=== PATIENT | female | born 1940 | race Caucasian/White ===

== ENCOUNTER 2018-12-13 09:59 | Inpatient (IN) ==
[2018-12-13] MEDS ORDERED: Mag Hydrox/Al Hydrox/Simeth 30 ML UDC PO PRN (16:50)
[2018-12-13] MEDS ORDERED: Ondansetron ODT 4 MG TAB.RAPDIS SL PRN (16:51)
[2018-12-13] MEDS ORDERED: Sennosides/Docusate Sodium TABLET PO PRN (17:34)
[2018-12-13] MEDS ORDERED: ZEAXANTHIN PO SCH (17:45)
[2018-12-13] MEDS ORDERED: LUTEIN PO SCH (17:45)
[2018-12-13] MEDS ORDERED: Warfarin perPT PO PRN (18:00)
[2018-12-13] MEDS: Acetaminophen 325 MG TABLET PO PRN (22:45)
[2018-12-14 05:54] LABS: Basophils % 0.3 %; Eosinophils # 0.1 K/mcL (0.0-0.6); Eosinophils % 3.7 %; Hemoglobin 7.8 g/dL (11.5-15.4); Immature Granulocytes % 0.3 % (0-4); Lymphocytes # 0.9 K/mcL (0.6-4.6); Lymphocytes % 26.2 %; Mean Corpuscular HGB Conc 32.5 g/dL (31.6-35.5); Mean Corpuscular Hemoglobin 31.2 pg (28.0-33.3); Mean Platelet Volume 9.4 fL (9.4-12.4); Monocytes # 0.3 K/mcL (0.0-1.3); Monocytes % 7.6 %; Neutrophils # 2.2 K/mcL (1.6-8.9); Red Cell Distribution Width 19.7 % (11.5-14.5); Segmented Neutrophils % 61.9 %; White Blood Count 3.6 K/mcL (4.3-11.1)
[2018-12-14 06:03] LABS: INR 3.2; Prothrombin Time 36.6 Seconds (9.4-12.1)
[2018-12-14 06:07] LABS: Platelet Count 82 K/mcL (140-400)
[2018-12-14 06:08] LABS: Anisocytosis 1+ (Not Present); Macrocytosis Present (Not Present); Microcytosis Present (Not Present); Platelet Estimate Marked Decrease (Normal); Poikilocytosis 1+ (Not Present)
[2018-12-14 06:09] LABS: Schistocytes 1+ (Not Present)
[2018-12-14 06:15] LABS: Alanine Aminotransferase 19 Units/L (7-52); Albumin 3.3 g/dL (3.5-5.7); Albumin/Globulin Ratio 1.4 (1.1-2.2); Alkaline Phosphatase 83 Units/L (34-104); Aspartate Amino Transferase 22 Units/L (13-39); BUN/Creatinine Ratio 17 (6-26); Bilirubin,Total 1.4 mg/dL (0.3-1.0); Blood Urea Nitrogen 12 mg/dL (8-23); Calcium 8.7 mg/dL (8.6-10.3); Carbon Dioxide 29 mEq/L (23-29); Chloride 106 mEq/L (98-107); Globulin 2.4 g/dL (2.4-3.5); Glucose 108 mg/dL (70-105); Magnesium 1.9 mg/dL (1.6-2.6); Osmolality,Calculated 288 (280-300); Sodium 139 mEq/L (136-145); Total Protein 5.7 g/dL (6.4-8.9); eGFR For African Americans > 60 (> 60); eGFR For Non-African Americans > 60 (> 60)
[2018-12-14] MEDS: Acetaminophen 325 MG TABLET PO PRN ×2 (06:35→20:37)
[2018-12-14] MEDS: Cholecalciferol (D-3) 1,000 UNIT (25MCG) TABLET PO SCH (10:04)
[2018-12-14] MEDS: Multivit/Ca/Min/Fe/FA 1 TAB TABLET PO SCH (10:04)
[2018-12-14] MEDS: Furosemide 20 MG TABLET PO SCH (10:04)
[2018-12-14] MEDS: OCUVITE LUTEIN PO SCH (10:05)
[2018-12-14] MEDS: Melatonin 3 MG TABLET PO PRN (20:38)
[2018-12-15] MEDS: Acetaminophen 325 MG TABLET PO PRN ×5 (02:33→21:33)
[2018-12-15 05:24] LABS: INR 2.3; Prothrombin Time 26.4 Seconds (9.4-12.1)
[2018-12-15] MEDS: Furosemide 20 MG TABLET PO SCH (08:16)
[2018-12-15] MEDS: Multivit/Ca/Min/Fe/FA 1 TAB TABLET PO SCH (08:16)
[2018-12-15] MEDS: Cholecalciferol (D-3) 1,000 UNIT (25MCG) TABLET PO SCH (08:16)
[2018-12-15] MEDS: OCUVITE LUTEIN PO SCH (08:16)
[2018-12-15] MEDS ORDERED: *HR* Warfarin 1 MG TABLET PO ONE (18:00)
[2018-12-15] MEDS: Melatonin 3 MG TABLET PO PRN (21:34)
[2018-12-16 05:55] LABS: Basophils % 0.4 %; Eosinophils # 0.1 K/mcL (0.0-0.6); Eosinophils % 3.6 %; Hematocrit 23.2 % (35.3-44.9); Hemoglobin 7.4 g/dL (11.5-15.4); Immature Granulocytes % 0.4 % (0-4); Lymphocytes # 0.6 K/mcL (0.6-4.6); Mean Corpuscular HGB Conc 31.9 g/dL (31.6-35.5); Mean Corpuscular Volume 97.1 fL (83.0-100.0); Mean Platelet Volume 12.3 fL (9.4-12.4); Monocytes # 0.2 K/mcL (0.0-1.3); Monocytes % 7.3 %; Neutrophils # 1.9 K/mcL (1.6-8.9); Red Blood Count 2.39 M/mcL (3.82-4.97); Red Cell Distribution Width 19.8 % (11.5-14.5); Segmented Neutrophils % 68.3 %; White Blood Count 2.8 K/mcL (4.3-11.1)
[2018-12-16 05:56] LABS: Platelet Count 97 K/mcL (140-400)
[2018-12-16 05:58] LABS: INR 1.5; Prothrombin Time 17.3 Seconds (9.4-12.1)
[2018-12-16 06:09] LABS: Alanine Aminotransferase 15 Units/L (7-52); Albumin 3.4 g/dL (3.5-5.7); Albumin/Globulin Ratio 1.5 (1.1-2.2); Alkaline Phosphatase 77 Units/L (34-104); Aspartate Amino Transferase 22 Units/L (13-39); BUN/Creatinine Ratio 23 (6-26); Bilirubin,Total 1.6 mg/dL (0.3-1.0); Blood Urea Nitrogen 15 mg/dL (8-23); Calcium 8.8 mg/dL (8.6-10.3); Carbon Dioxide 29 mEq/L (23-29); Chloride 104 mEq/L (98-107); Globulin 2.2 g/dL (2.4-3.5); Glucose 121 mg/dL (70-105); Osmolality,Calculated 286 (280-300); Potassium 3.7 mEq/L (3.5-5.1); Sodium 137 mEq/L (136-145); Total Protein 5.6 g/dL (6.4-8.9); eGFR For African Americans > 60 (> 60); eGFR For Non-African Americans > 60 (> 60)
[2018-12-16] MEDS: Acetaminophen 325 MG TABLET PO PRN ×2 (06:33→19:52)
[2018-12-16] MEDS: Furosemide 20 MG TABLET PO SCH (09:23)
[2018-12-16] MEDS: Cholecalciferol (D-3) 1,000 UNIT (25MCG) TABLET PO SCH (09:24)
[2018-12-16] MEDS: Multivit/Ca/Min/Fe/FA 1 TAB TABLET PO SCH (09:24)
[2018-12-16] MEDS: OCUVITE LUTEIN PO SCH (09:24)
[2018-12-16] MEDS ORDERED: *HR* Warfarin 1 MG TABLET PO ONE (18:00)
[2018-12-16] MEDS ORDERED: *HR* Warfarin 2 MG TABLET PO ONE (18:00)
[2018-12-17 05:15] LABS: INR 1.3; Prothrombin Time 14.5 Seconds (9.4-12.1)
[2018-12-17] MEDS: Multivit/Ca/Min/Fe/FA 1 TAB TABLET PO SCH (08:32)
[2018-12-17] MEDS: Cholecalciferol (D-3) 1,000 UNIT (25MCG) TABLET PO SCH (08:32)
[2018-12-17] MEDS: Furosemide 20 MG TABLET PO SCH (08:32)
[2018-12-17] MEDS: OCUVITE LUTEIN PO SCH (08:33)
[2018-12-17] MEDS ORDERED: *HR* Warfarin 1 MG TABLET PO ONE (18:00)
[2018-12-18] MEDS: Acetaminophen 325 MG TABLET PO PRN ×2 (05:44→23:11)
[2018-12-18 06:07] LABS: Eosinophils # 0.1 K/mcL (0.0-0.6); Eosinophils % 4.3 %; Hematocrit 22.3 % (35.3-44.9); Hemoglobin 7.1 g/dL (11.5-15.4); Immature Granulocytes % 0.4 % (0-4); Lymphocytes # 0.7 K/mcL (0.6-4.6); Lymphocytes % 27.9 %; Mean Corpuscular HGB Conc 31.8 g/dL (31.6-35.5); Mean Corpuscular Volume 97.4 fL (83.0-100.0); Mean Platelet Volume 10.2 fL (9.4-12.4); Monocytes # 0.3 K/mcL (0.0-1.3); Monocytes % 10.9 %; Neutrophils # 1.5 K/mcL (1.6-8.9); Red Blood Count 2.29 M/mcL (3.82-4.97); Red Cell Distribution Width 19.8 % (11.5-14.5); Segmented Neutrophils % 56.5 %; White Blood Count 2.6 K/mcL (4.3-11.1)
[2018-12-18 06:09] LABS: Platelet Count 86 K/mcL (140-400)
[2018-12-18 06:51] LABS: INR 1.2; Prothrombin Time 13.5 Seconds (9.4-12.1)
[2018-12-18] MEDS: OCUVITE LUTEIN PO SCH (09:08)
[2018-12-18] MEDS: Cholecalciferol (D-3) 1,000 UNIT (25MCG) TABLET PO SCH (09:12)
[2018-12-18] MEDS: Multivit/Ca/Min/Fe/FA 1 TAB TABLET PO SCH (09:12)
[2018-12-18] MEDS: Furosemide 20 MG TABLET PO SCH (09:12)
[2018-12-18] MEDS ORDERED: *HR* Warfarin 2.5 MG TABLET PO ONE (18:00)
[2018-12-18] MEDS: Melatonin 3 MG TABLET PO PRN (23:12)
[2018-12-19 05:38] LABS: INR 1.2; Prothrombin Time 13.5 Seconds (9.4-12.1)
[2018-12-19] MEDS: Multivit/Ca/Min/Fe/FA 1 TAB TABLET PO SCH (10:08)
[2018-12-19] MEDS: Furosemide 20 MG TABLET PO SCH (10:08)
[2018-12-19] MEDS: Cholecalciferol (D-3) 1,000 UNIT (25MCG) TABLET PO SCH (10:08)
[2018-12-19] MEDS: OCUVITE LUTEIN PO SCH (10:09)
[2018-12-19] MEDS ORDERED: *HR* Warfarin 2.5 MG TABLET PO ONE (18:00)
[2018-12-19] MEDS: Acetaminophen 325 MG TABLET PO PRN (21:13)
[2018-12-20 05:29] LABS: INR 1.1
[2018-12-20] MEDS: Multivit/Ca/Min/Fe/FA 1 TAB TABLET PO SCH (07:48)
[2018-12-20] MEDS: Furosemide 20 MG TABLET PO SCH (07:48)
[2018-12-20] MEDS: Cholecalciferol (D-3) 1,000 UNIT (25MCG) TABLET PO SCH (07:48)
[2018-12-20] MEDS: OCUVITE LUTEIN PO SCH (07:49)
[2018-12-20] MEDS: Acetaminophen 325 MG TABLET PO PRN ×2 (08:01→20:35)
[2018-12-20] MEDS ORDERED: *HR* Warfarin 10 MG TABLET PO ONE (12:00)
[2018-12-20 14:45] LABS: Bilirubin,Urine Negative (Negative); Blood,Urine Negative (Negative); Clarity,Urine Clear (Clear); Color,Urine Yellow (Yellow); Glucose,Urine (UA) Normal (Normal); Ketones,Urine Negative (Negative); Leukocyte Esterase,Urine Small (Negative); Nitrite,Urine Negative (Negative); Protein,Urine Negative (Neg-Trace); Specific Gravity,Urine 1.015 (1.010-1.025); Urobilinogen,Urine Normal (Normal)
[2018-12-20 14:55] LABS: Bacteria,Urine Few per hpf (None-Few); Squamous Epithelial Cell,Urine Few per lpf (None-Few)
[2018-12-21 05:47] LABS: Hematocrit 21.7 % (35.3-44.9); Hemoglobin 6.9 g/dL (11.5-15.4); Mean Corpuscular HGB Conc 31.8 g/dL (31.6-35.5); Mean Corpuscular Hemoglobin 31.4 pg (28.0-33.3); Mean Corpuscular Volume 98.6 fL (83.0-100.0); Mean Platelet Volume 12.1 fL (9.4-12.4); Red Cell Distribution Width 19.9 % (11.5-14.5); White Blood Count 2.8 K/mcL (4.3-11.1)
[2018-12-21 05:48] LABS: Platelet Count 94 K/mcL (140-400)
[2018-12-21 05:53] LABS: INR 1.2; Prothrombin Time 13.4 Seconds (9.4-12.1)
[2018-12-21 06:05] LABS: Alanine Aminotransferase 17 Units/L (7-52); Albumin 3.4 g/dL (3.5-5.7); Albumin/Globulin Ratio 1.5 (1.1-2.2); Alkaline Phosphatase 70 Units/L (34-104); Aspartate Amino Transferase 22 Units/L (13-39); BUN/Creatinine Ratio 22 (6-26); Bilirubin,Total 1.4 mg/dL (0.3-1.0); Blood Urea Nitrogen 15 mg/dL (8-23); Calcium 8.9 mg/dL (8.6-10.3); Carbon Dioxide 29 mEq/L (23-29); Chloride 105 mEq/L (98-107); Globulin 2.2 g/dL (2.4-3.5); Glucose 116 mg/dL (70-105); Magnesium 2.1 mg/dL (1.6-2.6); Osmolality,Calculated 290 (280-300); Potassium 3.9 mEq/L (3.5-5.1); Sodium 139 mEq/L (136-145); Total Protein 5.6 g/dL (6.4-8.9); eGFR For African Americans > 60 (> 60); eGFR For Non-African Americans > 60 (> 60)
[2018-12-21] MEDS: Acetaminophen 325 MG TABLET PO PRN ×2 (08:00→21:06)
[2018-12-21] MEDS: Cholecalciferol (D-3) 1,000 UNIT (25MCG) TABLET PO SCH (08:01)
[2018-12-21] MEDS: Furosemide 20 MG TABLET PO SCH (08:01)
[2018-12-21] MEDS: OCUVITE LUTEIN PO SCH (08:01)
[2018-12-21] MEDS: Multivit/Ca/Min/Fe/FA 1 TAB TABLET PO SCH (08:01)
[2018-12-21] MEDS ORDERED: *HR* Warfarin 10 MG TABLET PO ONE (10:00)
[2018-12-21] MEDS ORDERED: Furosemide 20 MG/2 ML VIAL IVP PRN (10:39)
[2018-12-21] MEDS ORDERED: 0.9 % Sodium Chloride 250 ML IVC SCH ×2 (10:45)
[2018-12-22 05:10] LABS: INR 1.4; Prothrombin Time 15.9 Seconds (9.4-12.1)
[2018-12-22] MEDS: Acetaminophen 325 MG TABLET PO PRN ×2 (08:21→20:17)
[2018-12-22] MEDS: Multivit/Ca/Min/Fe/FA 1 TAB TABLET PO SCH (08:21)
[2018-12-22] MEDS: OCUVITE LUTEIN PO SCH (08:22)
[2018-12-22] MEDS: Cholecalciferol (D-3) 1,000 UNIT (25MCG) TABLET PO SCH (08:22)
[2018-12-22] MEDS: Furosemide 20 MG TABLET PO SCH (08:22)
[2018-12-22 11:08] LABS: Basophils % 0.3 %; Eosinophils # 0.1 K/mcL (0.0-0.6); Eosinophils % 2.2 %; Hemoglobin 9.4 g/dL (11.5-15.4); Immature Granulocytes % 0.3 % (0-4); Lymphocytes # 0.6 K/mcL (0.6-4.6); Lymphocytes % 17.4 %; Mean Corpuscular HGB Conc 32.4 g/dL (31.6-35.5); Mean Corpuscular Hemoglobin 31.3 pg (28.0-33.3); Mean Corpuscular Volume 96.7 fL (83.0-100.0); Mean Platelet Volume 10.4 fL (9.4-12.4); Monocytes # 0.3 K/mcL (0.0-1.3); Monocytes % 8.2 %; Platelet Count 105 K/mcL (140-400); Red Cell Distribution Width 18.8 % (11.5-14.5); Segmented Neutrophils % 71.6 %; White Blood Count 3.7 K/mcL (4.3-11.1)
[2018-12-22 11:09] LABS: Neutrophils # 2.7 K/mcL (1.6-8.9)
[2018-12-22] MEDS ORDERED: *HR* Warfarin 4 MG TABLET PO ONE (14:00)
[2018-12-23 06:00] LABS: INR 1.7
[2018-12-23] MEDS: Acetaminophen 325 MG TABLET PO PRN ×2 (09:10→22:40)
[2018-12-23] MEDS: Multivit/Ca/Min/Fe/FA 1 TAB TABLET PO SCH (09:10)
[2018-12-23] MEDS: OCUVITE LUTEIN PO SCH (09:11)
[2018-12-23] MEDS: Cholecalciferol (D-3) 1,000 UNIT (25MCG) TABLET PO SCH (09:11)
[2018-12-23] MEDS: Furosemide 20 MG TABLET PO SCH (09:11)
[2018-12-23] MEDS ORDERED: *HR* Warfarin 10 MG TABLET PO ONE (18:00)
[2018-12-23] MEDS: Melatonin 3 MG TABLET PO PRN (22:41)
[2018-12-24 05:17] LABS: Prothrombin Time 22.7 Seconds (9.4-12.1)
[2018-12-24] MEDS: Cholecalciferol (D-3) 1,000 UNIT (25MCG) TABLET PO SCH (08:28)
[2018-12-24] MEDS: Furosemide 20 MG TABLET PO SCH (08:28)
[2018-12-24] MEDS: Multivit/Ca/Min/Fe/FA 1 TAB TABLET PO SCH (08:28)
[2018-12-24] MEDS: OCUVITE LUTEIN PO SCH (08:29)
[2018-12-24] MEDS ORDERED: *HR* Warfarin 3 MG TABLET PO ONE (18:00)
[2018-12-24] MEDS: Acetaminophen 325 MG TABLET PO PRN (20:40)
[2018-12-24] MEDS: Melatonin 3 MG TABLET PO PRN (20:40)
[2018-12-25 05:33] LABS: Basophils % 0.4 %; Eosinophils # 0.1 K/mcL (0.0-0.6); Eosinophils % 3.3 %; Hematocrit 26.4 % (35.3-44.9); Hemoglobin 8.5 g/dL (11.5-15.4); Immature Granulocytes % 0.4 % (0-4); Lymphocytes # 0.6 K/mcL (0.6-4.6); Lymphocytes % 23.4 %; Mean Corpuscular HGB Conc 32.2 g/dL (31.6-35.5); Mean Corpuscular Hemoglobin 31.5 pg (28.0-33.3); Mean Corpuscular Volume 97.8 fL (83.0-100.0); Mean Platelet Volume 10.5 fL (9.4-12.4); Monocytes # 0.3 K/mcL (0.0-1.3); Monocytes % 9.5 %; Neutrophils # 1.7 K/mcL (1.6-8.9); Platelet Count 93 K/mcL (140-400); Red Cell Distribution Width 18.5 % (11.5-14.5); White Blood Count 2.7 K/mcL (4.3-11.1)
[2018-12-25 05:39] LABS: Prothrombin Time 22.9 Seconds (9.4-12.1)
[2018-12-25] MEDS: Acetaminophen 325 MG TABLET PO PRN ×3 (08:34→22:35)
[2018-12-25] MEDS: Cholecalciferol (D-3) 1,000 UNIT (25MCG) TABLET PO SCH (08:34)
[2018-12-25] MEDS: Multivit/Ca/Min/Fe/FA 1 TAB TABLET PO SCH (08:34)
[2018-12-25] MEDS: Furosemide 20 MG TABLET PO SCH (08:34)
[2018-12-25] MEDS: OCUVITE LUTEIN PO SCH (08:35)
[2018-12-25] MEDS ORDERED: *HR* Warfarin 3 MG TABLET PO ONE (18:00)
[2018-12-25] MEDS: Melatonin 3 MG TABLET PO PRN (22:35)
[2018-12-26 06:12] LABS: INR 2.2; Prothrombin Time 25.1 Seconds (9.4-12.1)
[2018-12-26] MEDS: Acetaminophen 325 MG TABLET PO PRN ×2 (08:13→21:20)
[2018-12-26] MEDS: OCUVITE LUTEIN PO SCH (08:13)
[2018-12-26] MEDS: Multivit/Ca/Min/Fe/FA 1 TAB TABLET PO SCH (08:13)
[2018-12-26] MEDS: Cholecalciferol (D-3) 1,000 UNIT (25MCG) TABLET PO SCH (08:13)
[2018-12-26] MEDS: Furosemide 20 MG TABLET PO SCH (08:13)
[2018-12-26] MEDS ORDERED: *HR* Warfarin 3 MG TABLET PO ONE (18:00)
[2018-12-27 06:06] LABS: Basophils % 0.4 %; Eosinophils # 0.1 K/mcL (0.0-0.6); Eosinophils % 2.9 %; Hematocrit 27.5 % (35.3-44.9); Hemoglobin 8.8 g/dL (11.5-15.4); Lymphocytes # 0.8 K/mcL (0.6-4.6); Mean Corpuscular Hemoglobin 31.2 pg (28.0-33.3); Mean Corpuscular Volume 97.5 fL (83.0-100.0); Mean Platelet Volume 11.3 fL (9.4-12.4); Monocytes # 0.3 K/mcL (0.0-1.3); Neutrophils # 1.6 K/mcL (1.6-8.9); Red Blood Count 2.82 M/mcL (3.82-4.97); Red Cell Distribution Width 18.2 % (11.5-14.5); Segmented Neutrophils % 58.7 %; White Blood Count 2.8 K/mcL (4.3-11.1)
[2018-12-27 06:17] LABS: INR 2.3; Prothrombin Time 25.9 Seconds (9.4-12.1)
[2018-12-27 06:29] LABS: Platelet Count 95 K/mcL (140-400)
[2018-12-27 06:30] LABS: Alanine Aminotransferase 15 Units/L (7-52); Albumin 3.4 g/dL (3.5-5.7); Albumin/Globulin Ratio 1.6 (1.1-2.2); Alkaline Phosphatase 73 Units/L (34-104); Aspartate Amino Transferase 20 Units/L (13-39); BUN/Creatinine Ratio 28 (6-26); Bilirubin,Total 1.1 mg/dL (0.3-1.0); Blood Urea Nitrogen 19 mg/dL (8-23); Calcium 8.9 mg/dL (8.6-10.3); Carbon Dioxide 31 mEq/L (23-29); Chloride 105 mEq/L (98-107); Globulin 2.1 g/dL (2.4-3.5); Glucose 103 mg/dL (70-105); Magnesium 2.2 mg/dL (1.6-2.6); Osmolality,Calculated 291 (280-300); Potassium 4.1 mEq/L (3.5-5.1); Sodium 139 mEq/L (136-145); Total Protein 5.5 g/dL (6.4-8.9); eGFR For African Americans > 60 (> 60); eGFR For Non-African Americans > 60 (> 60)
[2018-12-27] MEDS: Furosemide 20 MG TABLET PO SCH (08:50)
[2018-12-27] MEDS: Multivit/Ca/Min/Fe/FA 1 TAB TABLET PO SCH (08:50)
[2018-12-27] MEDS: OCUVITE LUTEIN PO SCH (08:50)
[2018-12-27] MEDS: Cholecalciferol (D-3) 1,000 UNIT (25MCG) TABLET PO SCH (08:50)
[2018-12-27] MEDS: Acetaminophen 325 MG TABLET PO PRN ×2 (10:15→19:43)
[2018-12-27] MEDS ORDERED: *HR* Warfarin 3 MG TABLET PO ONE (18:00)
[2018-12-28 06:10] LABS: INR 2.2; Prothrombin Time 25.1 Seconds (9.4-12.1)
[2018-12-28] MEDS: Furosemide 20 MG TABLET PO SCH (09:01)
[2018-12-28] MEDS: Multivit/Ca/Min/Fe/FA 1 TAB TABLET PO SCH (09:01)
[2018-12-28] MEDS: Acetaminophen 325 MG TABLET PO PRN (09:01)
[2018-12-28] MEDS: OCUVITE LUTEIN PO SCH (09:02)
[2018-12-28] MEDS: Cholecalciferol (D-3) 1,000 UNIT (25MCG) TABLET PO SCH (09:02)
[2018-12-28] MEDS ORDERED: *HR* Warfarin 3 MG TABLET PO ONE (18:00)
[2018-12-29 04:57] LABS: INR 2.5; Prothrombin Time 28.9 Seconds (9.4-12.1)
[2018-12-29] MEDS: Acetaminophen 325 MG TABLET PO PRN ×4 (06:33→20:34)
[2018-12-29] MEDS: Furosemide 20 MG TABLET PO SCH (09:35)
[2018-12-29] MEDS: Cholecalciferol (D-3) 1,000 UNIT (25MCG) TABLET PO SCH (09:35)
[2018-12-29] MEDS: Multivit/Ca/Min/Fe/FA 1 TAB TABLET PO SCH (09:36)
[2018-12-29] MEDS: OCUVITE LUTEIN PO SCH (09:36)
[2018-12-29] MEDS ORDERED: *HR* Warfarin 3 MG TABLET PO ONE (18:00)
[2018-12-30 05:33] LABS: INR 2.8
[2018-12-30 05:34] LABS: Hematocrit 26.8 % (35.3-44.9); Hemoglobin 8.6 g/dL (11.5-15.4); Mean Corpuscular HGB Conc 32.1 g/dL (31.6-35.5); Mean Corpuscular Hemoglobin 31.5 pg (28.0-33.3); Mean Corpuscular Volume 98.2 fL (83.0-100.0); Mean Platelet Volume 9.9 fL (9.4-12.4); Red Blood Count 2.73 M/mcL (3.82-4.97); Red Cell Distribution Width 18.4 % (11.5-14.5); White Blood Count 3.2 K/mcL (4.3-11.1)
[2018-12-30 05:35] LABS: Platelet Count 77 K/mcL (140-400)
[2018-12-30 05:43] LABS: BUN/Creatinine Ratio 20 (6-26); Blood Urea Nitrogen 15 mg/dL (8-23); Calcium 8.9 mg/dL (8.6-10.3); Carbon Dioxide 30 mEq/L (23-29); Chloride 107 mEq/L (98-107); Glucose 105 mg/dL (70-105); Osmolality,Calculated 291 (280-300); Potassium 4.1 mEq/L (3.5-5.1); Sodium 140 mEq/L (136-145); eGFR For African Americans > 60 (> 60); eGFR For Non-African Americans > 60 (> 60)
[2018-12-30] MEDS: Acetaminophen 325 MG TABLET PO PRN ×2 (08:54→20:31)
[2018-12-30] MEDS: Multivit/Ca/Min/Fe/FA 1 TAB TABLET PO SCH (08:54)
[2018-12-30] MEDS: Furosemide 20 MG TABLET PO SCH (08:54)
[2018-12-30] MEDS: Cholecalciferol (D-3) 1,000 UNIT (25MCG) TABLET PO SCH (08:54)
[2018-12-30] MEDS: OCUVITE LUTEIN PO SCH (08:54)
[2018-12-30] MEDS ORDERED: *HR* Warfarin 3 MG TABLET PO ONE (18:00)
[2018-12-31 05:30] LABS: INR 2.7; Prothrombin Time 30.4 Seconds (9.4-12.1)
[2018-12-31] MEDS: Acetaminophen 325 MG TABLET PO PRN ×2 (10:01→19:52)
[2018-12-31] MEDS: Furosemide 20 MG TABLET PO SCH (10:02)
[2018-12-31] MEDS: Multivit/Ca/Min/Fe/FA 1 TAB TABLET PO SCH (10:02)
[2018-12-31] MEDS: OCUVITE LUTEIN PO SCH (10:02)
[2018-12-31] MEDS: Cholecalciferol (D-3) 1,000 UNIT (25MCG) TABLET PO SCH (10:02)
[2018-12-31] MEDS ORDERED: *HR* Warfarin 3 MG TABLET PO ONE (18:00)
[2019-01-01 05:49] LABS: INR 2.3; Prothrombin Time 26.4 Seconds (9.4-12.1)
[2019-01-01] MEDS: Multivit/Ca/Min/Fe/FA 1 TAB TABLET PO SCH (09:16)
[2019-01-01] MEDS: Furosemide 20 MG TABLET PO SCH (09:16)
[2019-01-01] MEDS: Cholecalciferol (D-3) 1,000 UNIT (25MCG) TABLET PO SCH (09:16)
[2019-01-01] MEDS: Acetaminophen 325 MG TABLET PO PRN ×2 (09:17→20:32)
[2019-01-01] MEDS: OCUVITE LUTEIN PO SCH (09:55)
[2019-01-01] MEDS ORDERED: *HR* Warfarin 3 MG TABLET PO ONE (18:00)
[2019-01-02 06:09] LABS: INR 2.5; Prothrombin Time 28.8 Seconds (9.4-12.1)
[2019-01-02] MEDS: Acetaminophen 325 MG TABLET PO PRN ×3 (08:06→20:05)
[2019-01-02] MEDS: Cholecalciferol (D-3) 1,000 UNIT (25MCG) TABLET PO SCH (08:06)
[2019-01-02] MEDS: OCUVITE LUTEIN PO SCH (08:07)
[2019-01-02] MEDS: Furosemide 20 MG TABLET PO SCH (08:07)
[2019-01-02] MEDS: Multivit/Ca/Min/Fe/FA 1 TAB TABLET PO SCH (08:07)
[2019-01-02] MEDS ORDERED: *HR* Warfarin 3 MG TABLET PO ONE (18:00)
[2019-01-03 05:45] LABS: INR 2.5; Prothrombin Time 28.1 Seconds (9.4-12.1)
[2019-01-03] MEDS: Acetaminophen 325 MG TABLET PO PRN ×2 (08:18→21:00)
[2019-01-03] MEDS: Multivit/Ca/Min/Fe/FA 1 TAB TABLET PO SCH (08:18)
[2019-01-03] MEDS: OCUVITE LUTEIN PO SCH (08:18)
[2019-01-03] MEDS: Cholecalciferol (D-3) 1,000 UNIT (25MCG) TABLET PO SCH (08:18)
[2019-01-03] MEDS: Furosemide 20 MG TABLET PO SCH (08:18)
[2019-01-03 10:29] LABS: Hematocrit 27.7 % (35.3-44.9); Hemoglobin 8.9 g/dL (11.5-15.4); Mean Corpuscular HGB Conc 32.1 g/dL (31.6-35.5); Mean Corpuscular Hemoglobin 31.2 pg (28.0-33.3); Mean Corpuscular Volume 97.2 fL (83.0-100.0); Mean Platelet Volume 12.3 fL (9.4-12.4); Red Blood Count 2.85 M/mcL (3.82-4.97); Red Cell Distribution Width 18.1 % (11.5-14.5); White Blood Count 3.4 K/mcL (4.3-11.1)
[2019-01-03 10:36] LABS: BUN/Creatinine Ratio 23 (6-26); Blood Urea Nitrogen 16 mg/dL (8-23); Calcium 8.9 mg/dL (8.6-10.3); Carbon Dioxide 28 mEq/L (23-29); Chloride 105 mEq/L (98-107); Glucose 114 mg/dL (70-105); Osmolality,Calculated 286 (280-300); Potassium 4.2 mEq/L (3.5-5.1); Sodium 137 mEq/L (136-145); eGFR For African Americans > 60 (> 60); eGFR For Non-African Americans > 60 (> 60)
[2019-01-03 10:46] LABS: Platelet Count 98 K/mcL (140-400)
[2019-01-03] MEDS ORDERED: *HR* Warfarin 3 MG TABLET PO ONE (18:00)
[2019-01-04 05:17] LABS: INR 2.3; Prothrombin Time 26.1 Seconds (9.4-12.1)
[2019-01-04] MEDS: Multivit/Ca/Min/Fe/FA 1 TAB TABLET PO SCH (08:36)
[2019-01-04] MEDS: Cholecalciferol (D-3) 1,000 UNIT (25MCG) TABLET PO SCH (08:36)
[2019-01-04] MEDS: OCUVITE LUTEIN PO SCH (08:36)
[2019-01-04] MEDS: Acetaminophen 325 MG TABLET PO PRN ×3 (08:36→22:47)
[2019-01-04] MEDS: Furosemide 20 MG TABLET PO SCH (08:37)
[2019-01-04] MEDS ORDERED: *HR* Warfarin 3 MG TABLET PO ONE (18:00)
[2019-01-04] MEDS ORDERED: *HR* Warfarin 3 MG TABLET PO SCH (18:00)
[2019-01-05 06:16] LABS: Hemoglobin 8.6 g/dL (11.5-15.4); Mean Corpuscular HGB Conc 31.9 g/dL (31.6-35.5); Mean Corpuscular Hemoglobin 31.2 pg (28.0-33.3); Mean Corpuscular Volume 97.8 fL (83.0-100.0); Mean Platelet Volume 9.4 fL (9.4-12.4); Red Blood Count 2.76 M/mcL (3.82-4.97); Red Cell Distribution Width 18.1 % (11.5-14.5)
[2019-01-05 06:20] LABS: INR 2.3; Prothrombin Time 26.2 Seconds (9.4-12.1)
[2019-01-05 06:53] LABS: BUN/Creatinine Ratio 20 (6-26); Blood Urea Nitrogen 13 mg/dL (8-23); Calcium 8.9 mg/dL (8.6-10.3); Carbon Dioxide 30 mEq/L (23-29); Chloride 107 mEq/L (98-107); Glucose 110 mg/dL (70-105); Osmolality,Calculated 291 (280-300); Potassium 3.8 mEq/L (3.5-5.1); Sodium 140 mEq/L (136-145); eGFR For African Americans > 60 (> 60); eGFR For Non-African Americans > 60 (> 60)
[2019-01-05 07:30] LABS: Platelet Count 74 K/mcL (140-400)
[2019-01-05 08:31] LABS: % Iron Saturation 28 % (15-50); Iron 63 mcg/dL (50-170); Transferrin 163 mg/dL (203-362)
[2019-01-05] MEDS: Multivit/Ca/Min/Fe/FA 1 TAB TABLET PO SCH (08:45)
[2019-01-05] MEDS: Furosemide 20 MG TABLET PO SCH (08:45)
[2019-01-05] MEDS: OCUVITE LUTEIN PO SCH (08:45)
[2019-01-05] MEDS: Cholecalciferol (D-3) 1,000 UNIT (25MCG) TABLET PO SCH (08:46)
[2019-01-05] MEDS: Acetaminophen 325 MG TABLET PO PRN ×2 (17:00→23:55)
[2019-01-05] MEDS ORDERED: *HR* Warfarin 3 MG TABLET PO ONE (18:00)
[2019-01-06] MEDS: OCUVITE LUTEIN PO SCH (08:31)
[2019-01-06] MEDS: Multivit/Ca/Min/Fe/FA 1 TAB TABLET PO SCH (08:36)
[2019-01-06] MEDS: Furosemide 20 MG TABLET PO SCH (08:37)
[2019-01-06] MEDS: Acetaminophen 325 MG TABLET PO PRN ×2 (08:37→21:12)
[2019-01-06] MEDS: Cholecalciferol (D-3) 1,000 UNIT (25MCG) TABLET PO SCH (08:37)
[2019-01-06] MEDS: Melatonin 3 MG TABLET PO PRN (21:13)
[2019-01-07 07:37] LABS: INR 2.2; Prothrombin Time 25.4 Seconds (9.4-12.1)
[2019-01-07] MEDS: Multivit/Ca/Min/Fe/FA 1 TAB TABLET PO SCH (08:29)
[2019-01-07] MEDS: Cyanocobalamin (B-12) 1,000 MCG TABLET PO SCH (08:29)
[2019-01-07] MEDS: OCUVITE LUTEIN PO SCH (08:29)
[2019-01-07] MEDS: Cholecalciferol (D-3) 1,000 UNIT (25MCG) TABLET PO SCH (08:29)
[2019-01-07] MEDS: Furosemide 20 MG TABLET PO SCH (08:29)
[2019-01-07] MEDS: Acetaminophen 325 MG TABLET PO PRN ×3 (08:29→21:31)
[2019-01-07] MEDS ORDERED: *HR* Warfarin 3 MG TABLET PO ONE (18:00)
[2019-01-08 06:17] LABS: INR 1.7; Prothrombin Time 18.8 Seconds (9.4-12.1)
[2019-01-08] MEDS: Cholecalciferol (D-3) 1,000 UNIT (25MCG) TABLET PO SCH (09:35)
[2019-01-08] MEDS: Acetaminophen 325 MG TABLET PO PRN ×2 (09:35→21:09)
[2019-01-08] MEDS: Furosemide 20 MG TABLET PO SCH (09:35)
[2019-01-08] MEDS: Cyanocobalamin (B-12) 1,000 MCG TABLET PO SCH (09:36)
[2019-01-08] MEDS: OCUVITE LUTEIN PO SCH (09:36)
[2019-01-08] MEDS: Multivit/Ca/Min/Fe/FA 1 TAB TABLET PO SCH (09:36)
[2019-01-08] MEDS ORDERED: *HR* Warfarin 10 MG TABLET PO ONE (18:00)
[2019-01-09 06:07] LABS: INR 1.7; Prothrombin Time 18.9 Seconds (9.4-12.1)
[2019-01-09] MEDS: Cholecalciferol (D-3) 1,000 UNIT (25MCG) TABLET PO SCH (07:35)
[2019-01-09] MEDS: Acetaminophen 325 MG TABLET PO PRN ×2 (07:35→19:44)
[2019-01-09] MEDS: Furosemide 20 MG TABLET PO SCH (07:35)
[2019-01-09] MEDS: OCUVITE LUTEIN PO SCH (07:36)
[2019-01-09] MEDS: Cyanocobalamin (B-12) 1,000 MCG TABLET PO SCH (07:36)
[2019-01-09] MEDS: Multivit/Ca/Min/Fe/FA 1 TAB TABLET PO SCH (07:36)
[2019-01-09] MEDS ORDERED: *HR* Enoxaparin 120 MG/0.8 ML SYRINGE SQ SCH (13:00)
[2019-01-09] MEDS ORDERED: *HR* Warfarin 3 MG TABLET PO ONE (18:00)
[2019-01-10 06:32] LABS: INR 1.7; Prothrombin Time 19.6 Seconds (9.4-12.1)
[2019-01-10] MEDS: *HR* Enoxaparin 120 MG/0.8 ML SYRINGE SQ SCH ×2 (06:49→17:06)
[2019-01-10] MEDS: Furosemide 20 MG TABLET PO SCH (06:50)
[2019-01-10] MEDS: Cyanocobalamin (B-12) 1,000 MCG TABLET PO SCH (06:51)
[2019-01-10] MEDS: Acetaminophen 325 MG TABLET PO PRN ×2 (06:51→21:49)
[2019-01-10] MEDS: Multivit/Ca/Min/Fe/FA 1 TAB TABLET PO SCH (06:51)
[2019-01-10] MEDS: Cholecalciferol (D-3) 1,000 UNIT (25MCG) TABLET PO SCH (06:51)
[2019-01-10] MEDS: OCUVITE LUTEIN PO SCH (06:56)
[2019-01-10] MEDS ORDERED: *HR* Warfarin 5 MG TABLET PO ONE (18:00)
[2019-01-11 06:18] LABS: INR 2.1; Prothrombin Time 23.7 Seconds (9.4-12.1)
[2019-01-11] MEDS: *HR* Enoxaparin 120 MG/0.8 ML SYRINGE SQ SCH (07:19)
[2019-01-11] MEDS: Cyanocobalamin (B-12) 1,000 MCG TABLET PO SCH (09:55)
[2019-01-11] MEDS: OCUVITE LUTEIN PO SCH (09:55)
[2019-01-11] MEDS: Multivit/Ca/Min/Fe/FA 1 TAB TABLET PO SCH (09:55)
[2019-01-11] MEDS: Cholecalciferol (D-3) 1,000 UNIT (25MCG) TABLET PO SCH (09:55)
[2019-01-11] MEDS: Furosemide 20 MG TABLET PO SCH (09:55)
[2019-01-11] MEDS: Acetaminophen 325 MG TABLET PO PRN ×3 (09:55→21:12)
[2019-01-11] MEDS ORDERED: *HR* Warfarin 3 MG TABLET PO ONE (18:00)
[2019-01-12 05:22] LABS: INR 2.6; Prothrombin Time 30.1 Seconds (9.4-12.1)
[2019-01-12] MEDS: Furosemide 20 MG TABLET PO SCH (07:49)
[2019-01-12] MEDS: Multivit/Ca/Min/Fe/FA 1 TAB TABLET PO SCH (07:50)
[2019-01-12] MEDS: OCUVITE LUTEIN PO SCH (07:50)
[2019-01-12] MEDS: Cholecalciferol (D-3) 1,000 UNIT (25MCG) TABLET PO SCH (07:50)
[2019-01-12] MEDS: Cyanocobalamin (B-12) 1,000 MCG TABLET PO SCH (07:50)
[2019-01-12] MEDS: Acetaminophen 325 MG TABLET PO PRN ×3 (07:50→20:04)
[2019-01-12] MEDS ORDERED: *HR* Warfarin 3 MG TABLET PO ONE (18:00)
[2019-01-12] MEDS ORDERED: *HR* Warfarin 7.5 MG TABLET PO ONE (18:00)
[2019-01-13 05:05] LABS: INR 2.7; Prothrombin Time 30.2 Seconds (9.4-12.1)
[2019-01-13] MEDS: Acetaminophen 325 MG TABLET PO PRN ×2 (08:29→21:17)
[2019-01-13] MEDS: Cholecalciferol (D-3) 1,000 UNIT (25MCG) TABLET PO SCH (08:30)
[2019-01-13] MEDS: Cyanocobalamin (B-12) 1,000 MCG TABLET PO SCH (08:30)
[2019-01-13] MEDS: Multivit/Ca/Min/Fe/FA 1 TAB TABLET PO SCH (08:30)
[2019-01-13] MEDS: Furosemide 20 MG TABLET PO SCH (08:30)
[2019-01-13] MEDS: OCUVITE LUTEIN PO SCH (08:59)
[2019-01-13] MEDS ORDERED: *HR* Warfarin 3 MG TABLET PO ONE (18:00)
[2019-01-14 06:24] LABS: INR 2.1; Prothrombin Time 23.8 Seconds (9.4-12.1)
[2019-01-14] MEDS: Multivit/Ca/Min/Fe/FA 1 TAB TABLET PO SCH (08:15)
[2019-01-14] MEDS: Acetaminophen 325 MG TABLET PO PRN ×3 (08:15→20:30)
[2019-01-14] MEDS: Furosemide 20 MG TABLET PO SCH (08:15)
[2019-01-14] MEDS: Cholecalciferol (D-3) 1,000 UNIT (25MCG) TABLET PO SCH (08:15)
[2019-01-14] MEDS: Cyanocobalamin (B-12) 1,000 MCG TABLET PO SCH (08:15)
[2019-01-14] MEDS: OCUVITE LUTEIN PO SCH (10:08)
[2019-01-14] MEDS ORDERED: *HR* Warfarin 3 MG TABLET PO ONE (18:00)
[2019-01-15 05:48] LABS: Hematocrit 25.9 % (35.3-44.9); Hemoglobin 8.4 g/dL (11.5-15.4); Mean Corpuscular HGB Conc 32.4 g/dL (31.6-35.5); Mean Corpuscular Hemoglobin 31.3 pg (28.0-33.3); Mean Corpuscular Volume 96.6 fL (83.0-100.0); Mean Platelet Volume 9.2 fL (9.4-12.4); Platelet Count 75 K/mcL (140-400); Red Blood Count 2.68 M/mcL (3.82-4.97); White Blood Count 2.8 K/mcL (4.3-11.1)
[2019-01-15 05:52] LABS: INR 1.8
[2019-01-15 06:04] LABS: BUN/Creatinine Ratio 23 (6-26); Blood Urea Nitrogen 16 mg/dL (8-23); Calcium 9.4 mg/dL (8.6-10.3); Carbon Dioxide 30 mEq/L (23-29); Chloride 106 mEq/L (98-107); Glucose 109 mg/dL (70-105); Osmolality,Calculated 294 (280-300); Potassium 4.1 mEq/L (3.5-5.1); Sodium 141 mEq/L (136-145); eGFR For African Americans > 60 (> 60); eGFR For Non-African Americans > 60 (> 60)
[2019-01-15] MEDS: Furosemide 20 MG TABLET PO SCH (09:09)
[2019-01-15] MEDS: Cholecalciferol (D-3) 1,000 UNIT (25MCG) TABLET PO SCH (09:09)
[2019-01-15] MEDS: Cyanocobalamin (B-12) 1,000 MCG TABLET PO SCH (09:09)
[2019-01-15] MEDS: Multivit/Ca/Min/Fe/FA 1 TAB TABLET PO SCH (09:09)
[2019-01-15] MEDS: Acetaminophen 325 MG TABLET PO PRN ×2 (09:09→20:53)
[2019-01-15] MEDS: OCUVITE LUTEIN PO SCH (09:10)
[2019-01-15] MEDS ORDERED: *HR* Warfarin 3 MG TABLET PO ONE (18:00)
[2019-01-16 05:55] LABS: Prothrombin Time 22.4 Seconds (9.4-12.1)
[2019-01-16] MEDS: Cholecalciferol (D-3) 1,000 UNIT (25MCG) TABLET PO SCH (07:53)
[2019-01-16] MEDS: Furosemide 20 MG TABLET PO SCH (07:53)
[2019-01-16] MEDS: Acetaminophen 325 MG TABLET PO PRN ×2 (07:53→19:46)
[2019-01-16] MEDS: Cyanocobalamin (B-12) 1,000 MCG TABLET PO SCH (07:53)
[2019-01-16] MEDS: Multivit/Ca/Min/Fe/FA 1 TAB TABLET PO SCH (07:53)
[2019-01-16] MEDS: OCUVITE LUTEIN PO SCH (07:56)
[2019-01-16] MEDS ORDERED: *HR* Warfarin 3 MG TABLET PO ONE (18:00)
[2019-01-17 06:03] LABS: INR 2.4; Prothrombin Time 26.8 Seconds (9.4-12.1)
[2019-01-17] MEDS: OCUVITE LUTEIN PO SCH (08:26)
[2019-01-17] MEDS: Cholecalciferol (D-3) 1,000 UNIT (25MCG) TABLET PO SCH (08:34)
[2019-01-17] MEDS: Cyanocobalamin (B-12) 1,000 MCG TABLET PO SCH (08:34)
[2019-01-17] MEDS: Furosemide 20 MG TABLET PO SCH (08:34)
[2019-01-17] MEDS: Multivit/Ca/Min/Fe/FA 1 TAB TABLET PO SCH (08:34)
[2019-01-17] MEDS: Acetaminophen 325 MG TABLET PO PRN ×3 (08:37→22:24)
[2019-01-17] MEDS ORDERED: *HR* Warfarin 3 MG TABLET PO ONE (18:00)
[2019-01-18 05:59] LABS: INR 2.3
[2019-01-18] MEDS: Multivit/Ca/Min/Fe/FA 1 TAB TABLET PO SCH (09:30)
[2019-01-18] MEDS: Cholecalciferol (D-3) 1,000 UNIT (25MCG) TABLET PO SCH (09:30)
[2019-01-18] MEDS: Acetaminophen 325 MG TABLET PO PRN ×2 (09:30→19:53)
[2019-01-18] MEDS: Furosemide 20 MG TABLET PO SCH (09:30)
[2019-01-18] MEDS: Cyanocobalamin (B-12) 1,000 MCG TABLET PO SCH (09:30)
[2019-01-18] MEDS: OCUVITE LUTEIN PO SCH (09:31)
[2019-01-18] MEDS ORDERED: *HR* Warfarin 3 MG TABLET PO ONE (18:00)
[2019-01-19 04:47] LABS: INR 2.2; Prothrombin Time 24.8 Seconds (9.4-12.1)
[2019-01-19] MEDS: OCUVITE LUTEIN PO SCH (08:02)
[2019-01-19] MEDS: Multivit/Ca/Min/Fe/FA 1 TAB TABLET PO SCH (08:03)
[2019-01-19] MEDS: Acetaminophen 325 MG TABLET PO PRN ×2 (08:03→20:36)
[2019-01-19] MEDS: Furosemide 20 MG TABLET PO SCH (08:03)
[2019-01-19] MEDS: Cholecalciferol (D-3) 1,000 UNIT (25MCG) TABLET PO SCH (08:03)
[2019-01-19] MEDS: Cyanocobalamin (B-12) 1,000 MCG TABLET PO SCH (08:04)
[2019-01-19] MEDS ORDERED: *HR* Warfarin 3 MG TABLET PO SCH (18:00)
[2019-01-20 06:14] LABS: INR 2.3; Prothrombin Time 26.7 Seconds (9.4-12.1)
[2019-01-20] MEDS: OCUVITE LUTEIN PO SCH (09:21)
[2019-01-20] MEDS: Cyanocobalamin (B-12) 1,000 MCG TABLET PO SCH (09:21)
[2019-01-20] MEDS: Furosemide 20 MG TABLET PO SCH (09:21)
[2019-01-20] MEDS: Multivit/Ca/Min/Fe/FA 1 TAB TABLET PO SCH (09:21)
[2019-01-20] MEDS: Cholecalciferol (D-3) 1,000 UNIT (25MCG) TABLET PO SCH (09:21)
[2019-01-20] MEDS: Acetaminophen 325 MG TABLET PO PRN ×3 (09:25→21:17)
[2019-01-20] MEDS: Eucerin Cream 57 GM TUBE TP SCH (17:39)
[2019-01-20] MEDS ORDERED: *HR* Warfarin 5 MG TABLET PO ONE (18:00)
[2019-01-20] MEDS ORDERED: *HR* Warfarin 4 MG TABLET PO ONE (18:00)
[2019-01-20] MEDS: Melatonin 3 MG TABLET PO PRN (21:17)
[2019-01-21 05:16] LABS: Hematocrit 24.7 % (35.3-44.9); Hemoglobin 7.9 g/dL (11.5-15.4); Mean Corpuscular Hemoglobin 30.7 pg (28.0-33.3); Mean Corpuscular Volume 96.1 fL (83.0-100.0); Mean Platelet Volume 10.7 fL (9.4-12.4); Red Blood Count 2.57 M/mcL (3.82-4.97); Red Cell Distribution Width 18.4 % (11.5-14.5); White Blood Count 2.6 K/mcL (4.3-11.1)
[2019-01-21 05:20] LABS: Platelet Count 81 K/mcL (140-400)
[2019-01-21 05:21] LABS: Prothrombin Time 22.2 Seconds (9.4-12.1)
[2019-01-21] MEDS: Cholecalciferol (D-3) 1,000 UNIT (25MCG) TABLET PO SCH (09:16)
[2019-01-21] MEDS: Cyanocobalamin (B-12) 1,000 MCG TABLET PO SCH (09:16)
[2019-01-21] MEDS: Acetaminophen 325 MG TABLET PO PRN ×2 (09:16→20:46)
[2019-01-21] MEDS: Multivit/Ca/Min/Fe/FA 1 TAB TABLET PO SCH (09:16)
[2019-01-21] MEDS: Furosemide 20 MG TABLET PO SCH (09:16)
[2019-01-21] MEDS: Eucerin Cream 57 GM TUBE TP SCH (09:17)
[2019-01-21] MEDS: OCUVITE LUTEIN PO SCH (09:20)
[2019-01-21] MEDS ORDERED: *HR* Warfarin 3 MG TABLET PO SCH ×2 (18:00)
[2019-01-22 05:54] LABS: INR 1.9; Prothrombin Time 21.4 Seconds (9.4-12.1)
[2019-01-22] MEDS: OCUVITE LUTEIN PO SCH (09:04)
[2019-01-22] MEDS: Acetaminophen 325 MG TABLET PO PRN ×2 (09:20→20:25)
[2019-01-22] MEDS: Cyanocobalamin (B-12) 1,000 MCG TABLET PO SCH (09:20)
[2019-01-22] MEDS: Multivit/Ca/Min/Fe/FA 1 TAB TABLET PO SCH (09:20)
[2019-01-22] MEDS: Furosemide 20 MG TABLET PO SCH (09:20)
[2019-01-22] MEDS: Cholecalciferol (D-3) 1,000 UNIT (25MCG) TABLET PO SCH (09:21)
[2019-01-22] MEDS: Eucerin Cream 57 GM TUBE TP SCH (09:21)
[2019-01-22] MEDS ORDERED: *HR* Warfarin 4 MG TABLET PO ONE (18:00)
[2019-01-23 06:11] LABS: INR 1.9; Prothrombin Time 21.2 Seconds (9.4-12.1)
[2019-01-23 08:25] VITALS: BP 150/79
[2019-01-23] MEDS: Acetaminophen 325 MG TABLET PO PRN (08:48)
[2019-01-23] MEDS: Multivit/Ca/Min/Fe/FA 1 TAB TABLET PO SCH (08:48)
[2019-01-23] MEDS: Eucerin Cream 57 GM TUBE TP SCH (08:49)
[2019-01-23] MEDS: Cholecalciferol (D-3) 1,000 UNIT (25MCG) TABLET PO SCH (08:49)
[2019-01-23] MEDS: Furosemide 20 MG TABLET PO SCH (08:49)
[2019-01-23] MEDS: OCUVITE LUTEIN PO SCH (08:49)
[2019-01-23] MEDS: Cyanocobalamin (B-12) 1,000 MCG TABLET PO SCH (08:49)
[2019-01-23] MEDS ORDERED: *HR* Warfarin 10 MG TABLET PO ONE (18:00)
== END 2019-01-23 15:10 | disposition home health service (06) | DRG 560 ==
LOC: INPGRE 16:30